=== PATIENT | male | born 1930 | race Caucasian/White ===

== ENCOUNTER 2017-06-13 13:02 | Emergency (ER) | payer MEDICARE ==
[2017-06-13 13:19] VITALS: BP 130/77
[2017-06-13] MEDS ORDERED: DIPHTH,PERTUSS(ACELL),TET VAC 0.5 ML VIAL IM ONE ×2 (13:31→14:35)
--- OUTSIDE RECORDS SUMMARY | 2017-06-13 13:36 | XMS REPORT | Encounter Summary ---
:1929 Author Organization [email or web address] [place] [address] Care Team Providers Name Role Phone Unavailable Primary Care Provider Unavailable Reason for Visit Reason Comments Medication Reaction Encounter Details Date Type Department Care Team Description 06/04/2017 Telephone [facility] Alok [place]varez [place] [address] [place] [phone] Social History Tobacco Use Types Packs/Day Years Used Date Never Smoker Smokeless Tobacco: Never Used Sex Assigned at Date Recorded Not on file as of this encounter Plan of Treatment Date Type Specialty Care Team Description 06/14/2017 Appointment Family Medicine as of this encounter Visit Diagnoses Not on filein this encounter
--- OUTSIDE RECORDS SUMMARY | 2017-06-13 13:36 | XMS REPORT | Encounter Summary ---
:1929 Author Organization [employer] [place] [address] Care Team Providers Name Role Phone Unavailable Primary Care Provider Unavailable Reason for Visit Reason Comments Results Encounter Details Date Type Department Care Team Description 06/12/2017 Telephone [facility] Xiomara Davenport, Results Family [address], [address] [place] [phone] [facility] [phone] [place], [place] [phone] Social History Tobacco Use Types Packs/Day Years Used Date Never Smoker Smokeless Tobacco: Never Used Sex Assigned at Date Recorded Not on file as of this encounter Plan of Treatment Date Type Specialty Care Team Description 06/14/2017 Appointment Family Medicine as of this encounter Visit Diagnoses Not on filein this encounter
--- OUTSIDE RECORDS SUMMARY | 2017-06-13 13:36 | XMS REPORT | Encounter Summary ---
:1929 Author Organization [employer] [place] [address] Care Team Providers Name Role Phone Unavailable Primary Care Provider Unavailable Encounter Details Date Type Department Care Team Description 06/04/2017 Orders Only [facility] Alok Medrano, TANK STAVE ASSEMBLER [address] [place] [address] [place] [address] [phone] Social History Tobacco Use Types Packs/Day Years Used Date Never Smoker Smokeless Tobacco: Never Used Sex Assigned at Date Recorded Not on file as of this encounter Plan of Treatment Date Type Specialty Care Team Description 06/14/2017 Appointment Family Medicine as of this encounter Visit Diagnoses Not on filein this encounter
--- OUTSIDE RECORDS SUMMARY | 2017-06-13 13:36 | XMS REPORT | Encounter Summary ---
:1929 Author Organization [email or web address] [place] [address] Care Team Providers Name Role Phone Unavailable Primary Care Provider Unavailable Encounter Details Date Type Department Care Team Description 06/04/2017 Orders Only [facility] Ervin, Atrial fibrillation , [facility] Xiomara Ramirez CMA unspecified type (HCC) [address] [facility], [address] [place] [address] (Primary Dx) [address] [facility] 3 [place] [address] [place] [address] [phone] Social History Tobacco Use Types Packs/Day Years Used Date Never Smoker Smokeless Tobacco: Never Used Sex Assigned at Date Recorded Not on file as of this encounter Plan of Treatment Date Type Specialty Care Team Description 06/14/2017 Appointment Family Medicine Name Priority Associated Diagnoses Order Schedule PROTIME-INR Routine Atrial fibrillation, unspecified 365 Occurrences starting type (HCC) 06/04/2017 until 06/04/2018, 1 completed as of this encounter Results PROTIME-INR (06/08/2017 1:35 PM) Component Value Ref Range Protime 24.1(H) 9.1 - 12.4 Sec INR 2.4 Comment: CLINICAL CORRELATION IS ESSENTIAL: Prophylaxsis/treatment/prevention of venous thrombosis/embolism INR 2.0 - 3.0 Mechanical prosthetic valves/recurrent systemic embolism INR 2.5 - 3.5 Specimen Performing Laboratory [employer] [facility] [address] [place] [address] Narrative Testing performed at [employer] [facility], [address] [place] [address].Musical Engineer Benton Garcia MD in this encounter Visit Diagnoses Diagnosis Atrial fibrillation, unspecified type (HCC) - Primary in this encounter
--- OUTSIDE RECORDS SUMMARY | 2017-06-13 13:36 | XMS REPORT | Clinical Summary ---
:[birth year]29 Author Organization [employer] [place] [address] Care Team Providers Name Role Phone Unavailable Primary Care Provider Unavailable Source Comments This disclosure is being made pursuant to the [employer] Pat[employer] program and maynot contain all information available regarding this patient.[employer] Allergies Active Allergy Reactions Severity Noted Date Comments Amoxicillin Other (See Comments) 01/02/2017 Fluoxetine Other (See Comments) 01/02/2017 Hydrocodone Dizziness Low 01/02/2017 hypotension Oxycodone Dizziness Low 01/02/2017 hypotension Current Medications Be aware that medications may not be up to date as of this document. Alwaysverify current medications with the patient. Prescription Sig. Disp. Refills Start Date End Date Status omeprazole Take 20 mg by 1 10/19/2016 Active (PRILOSEC) 20 MG mouth daily. capsule Multiple Take 1 tablet Active Vitamins-Minerals by mouth (MULTIVITAMIN ADULT daily. PO) fish oil 1000 MG Take 1,000 mg Active CAPS by mouth daily. omeprazole TAKE ONE 30 capsule 3 03/05/2017 Active (PRILOSEC) 20 MG CAPSULE BY capsule MOUTH DAILY warfarin (COUMADIN) Take 1 tablet 30 tablet 11 04/12/2017 Active 1 MG daily along tabletIndications:A with a 5 mg trial fibrillation, tablet to unspecified type equal 6 mg (HCC) daily warfarin (COUMADIN) TAKE 1 TABLET 30 tablet 1 04/18/2017 Active 5 MG tablet BY MOUTH DAILY metoprolol Take 1 tablet 30 tablet 0 06/04/2017 Active succinate by mouth (TOPROL-XL) 50 MG daily. 24 hr tablet metoprolol Take 50 mg by 5 12/11/2016 06/04/2017 Discontinued succinate mouth daily. (TOPROL-XL) 50 MG 24 hr tablet Active Problems Not on file Encounters Date Type Specialty Care Team Description 06/12/2017 Telephone Family Medicine Xiomara Mueller CMA 06/04/2017 Orders Only Family Medicine Alok Alvarez LPN 06/04/2017 Orders Only Family Medicine Xiomara Mueller Atrial fibrillation, L, GREEN PRIZE PACKER unspecified type (HCC) (Primary Dx) 06/04/2017 Telephone [facility] Medicine Alok Alvarez LPN Medication Reaction 06/04/2017 Telephone [facility] Alok Alvarez LPN Medication Review 06/03/2017 Orders Only [facility] Medicine [address], On warfarin therapy SOCIAL SCIENCES CHAIR (Primary Dx) 05/31/2017 Office Visit Family Medicine [address], Routine adult health maintenance (Primary Dx); SOCIAL SCIENCES CHAIR Atrial fibrillation, unspecified type (HCC) 04/18/2017 Refill Family Medicine Bowen Vinson MD from Last 3 Months Social History Tobacco Use Types Packs/Day Years Used Date Never Smoker Smokeless Tobacco: Never Used Sex Assigned at Date Recorded Not on file Last Filed Vital Signs Vital Sign Reading Time Taken Blood Pressure 143/75 05/31/2017 1:09 PM CDT Pulse 85 05/31/2017 1:09 PM CDT Temperature 36.8 C (98.2 F) 05/31/2017 1:09 PM CDT Respiratory Rate 17 05/31/2017 1:09 PM CDT Oxygen Saturation 96% 05/31/2017 1:09 PM CDT Inhaled Oxygen Concentration - - Weight 109 kg (240 lb 4.8 oz) 01/02/2017 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 Component Value Ref Range Protime 24.1(H) 9.1 - 12.4 Sec INR 2.4 Comment: CLINICAL CORRELATION IS ESSENTIAL: Prophylaxsis/treatment/prevention of venous thrombosis/embolism INR 2.0 - 3.0 Mechanical prosthetic valves/recurrent systemic embolism INR 2.5 - 3.5 Specimen Performing Laboratory [facility] [address] [place] [address] Narrative Testing performed at [facility], [address] [place] [address].Mfg Assoc Benton Garcia MD CBC auto differential (05/31/2017 1:55 PM) Component Value Ref Range WBC 7.8 3.1 - 11.0 x10^3/uL RBC 3.85(L) 4.29 - 5.55 x10^6/uL Hemoglobin 12.3(L) 13.4 - 16.9 g/dL Hematocrit 37.1(L) 39.2 - 48.0 % MCV 96.4 82.0 - 98.0 fL MCH 31.9 27.2 - 33.3 pg MCHC 33.2 32.0 - 36.0 g/dL RDW 14.0 11.4 - 14.2 % SD-RDW 48.6(H) 36.0 - 47.0 fL Platelets 188 150 - 450 x10^3/uL MPV 11.1 9.1 - 12.1 fL NE% 64.1 42.0 - 76.0 % %LYMPH 20.1 13.5 - 48.0 % %MONO 9.5 3.5 - 14.0 % % Eosinophils 4.7 0.0 - 7.0 % % Basophils 1.1 0.0 - 1.5 % Imm Gran Relative 0.5 0.0 - 1.0 % NE# 5.0 1.2 - 7.3 x10^3/uL Lymphs # 1.6 0.7 - 3.5 x10^3/uL [place]# 0.7 0.2 - 0.9 x10^3/uL Eosinophil # 0.4 0.0 - 0.5 x10^3/uL Baso# 0.1 0.0 - 0.1 x10^3/uL Imm Gran Absolute 0.04 0.00 - 0.10 x10^3/uL NRBC % 0.00 0.00 - 0.10 /100 WBC Specimen Performing Laboratory BLOOD [facility] [address] [place] [address] Narrative Testing performed at [facility], [address] [place] [address].Mfg Assoc Benton Garcia MD Comprehensive metabolic panel (05/31/2017 1:55 PM) Component Value Ref Range Glucose 103(H) 60 - 100 mg/dL Comment: Fasting Plasma Glucose (FPG)<100 MG/DL Impaired Fasting Glucose (IFG) 100-125 MG/DL Provisional Diagnosis of Diabetes Mellitus > uv=470 MG/DL (Diagnosis Must Be Confirmed) BUN, Blood 22 8 - 26 mg/dL Creatinine 1.7(H) 0.7 - 1.4 mg/dL Glomerular Filtration Rate 35(L) >80 mL/min/1.73mm2 Estimate Glomerlular Filtration Rate 40(L)Comment:The estimated GFR >80 mL/min/1.73mm2 Estimate- has not been validated for women or patients with serious comorbid conditions, or with extremes of body size, muscle mass, or nutritional status. Calcium 9.3 8.4 - 10.2 mg/dL Sodium 141 136 - 145 mmol/L Potassium 3.8 3.4 - 4.9 mmol/L Chloride 106 99 - 111 mmol/L CO2 24.6 21.0 - 32.0 mmol/L Albumin 3.6 3.5 - 5.0 g/dL Total Protein 7.8 6.1 - 8.0 g/dL Bilirubin Total 1.5(H) 0.2 - 1.2 mg/dL Alkaline Phosphatase 176(H) 40 - 150 U/L AST 19 5 - 34 U/L ALT 12 0 - 55 u/L Specimen Performing Laboratory [facility] [address] [place] [address] Narrative Testing performed at [facility], [address] [place] [address].Mfg Assoc Benton Garcia MD from Last 3 Months Insurance Payer Benefit Plan / Subscriber ID Type Phone Address Group MEDICARE MEDICARE A AND B [id number] [phone] [address] [place] [address] [facility] MEDICARE [id number] [phone] [address] [facility] [address] [place] [address] Home: [address] [facility] [phone] [place] [address]
--- OUTSIDE RECORDS SUMMARY | 2017-06-13 13:36 | XMS REPORT | Encounter Summary ---
:1929 Author Organization [employer] [place] [address] Care Team Providers Name Role Phone Unavailable Primary Care Provider Unavailable Reason for Visit Reason Comments Medication Review Encounter Details Date Type Department Care Team Description 06/04/2017 Telephone [facility] Alok Alvarez LPN Medication Review [address] [address] [place] [phone] Social History Tobacco Use Types Packs/Day Years Used Date Never Smoker Smokeless Tobacco: Never Used Sex Assigned at Date Recorded Not on file as of this encounter Plan of Treatment Date Type Specialty Care Team Description 06/14/2017 Appointment Family Medicine as of this encounter Visit Diagnoses Not on filein this encounter
--- OUTSIDE RECORDS SUMMARY | 2017-06-13 13:37 | XMS REPORT | Encounter Summary ---
:1929 Author Organization [employer] [place] [address] Care Team Providers Name Role Phone Unavailable Primary Care Provider Unavailable Encounter Details Date Type Department Care Team Description 02/20/2017 Orders Only [facility] Bowen Vinson Paroxysmal atrial [facility] MD [place] fibrillation (HCC) [address] [facility], [address] [place] [address] (Primary Dx) [address] [facility] 3 [place] [address] [place], [place] [phone] Social History Tobacco Use Types Packs/Day Years Used Date Never Smoker Smokeless Tobacco: Never Used Sex Assigned at Date Recorded Not on file as of this encounter Progress Notes Yandy Chavez RN - 02/20/2017 1:[address] Asim Garcia, Mr. Serrano will be started and managed on warfarin therapy for paroxysmal a-fib by Dr. Vinson. See media tab for records from Dr. Asim Garcia's office.in this encounter Plan of Treatment Date Type Specialty Care Team Description 06/14/2017 Appointment Family Medicine as of this encounter Visit Diagnoses Diagnosis Paroxysmal atrial fibrillation (HCC) - Primary Atrial fibrillation in this encounter
--- OUTSIDE RECORDS SUMMARY | 2017-06-13 13:37 | XMS REPORT | Encounter Summary ---
:1929 Author Organization [place] [address] Care Team Providers Name Role Phone Unavailable Primary Care Provider Unavailable Encounter Details Date Type Department Care Team Description 06/03/2017 Orders Only [facility] [address], On warfarin therapy Rosalie ZIMMER (Primary Dx) [facility] [address] [address] [place] [address] [phone] Social History Tobacco Use Types Packs/Day Years Used Date Never Smoker Smokeless Tobacco: Never Used Sex Assigned at Date Recorded Not on file as of this encounter Plan of Treatment Date Type Specialty Care Team Description 06/14/2017 Appointment Family Medicine as of this encounter Visit Diagnoses Diagnosis On warfarin therapy - Primary in this encounter
--- OUTSIDE RECORDS SUMMARY | 2017-06-13 13:37 | XMS REPORT | Encounter Summary ---
:1929 Author Organization [employer] [place] [address] Care Team Providers Name Role Phone Unavailable Primary Care Provider Unavailable Reason for Visit Reason Comments Medication Refill Encounter Details Date Type Department Care Team Description 04/18/2017 Refill [facility] Bowen Jacobs MD [address], [address] [address] [place] [phone] Social History Tobacco Use Types Packs/Day Years Used Date Never Smoker Smokeless Tobacco: Never Used Sex Assigned at Date Recorded Not on file as of this encounter Plan of Treatment Date Type Specialty Care Team Description 06/14/2017 Appointment Family Medicine as of this encounter Visit Diagnoses Not on filein this encounter
--- OUTSIDE RECORDS SUMMARY | 2017-06-13 13:37 | XMS REPORT | Encounter Summary ---
:1929 Author Organization [employer] [place] [address] Care Team Providers Name Role Phone Unavailable Primary Care Provider Unavailable Reason for Visit Reason Comments Establish Care Encounter Details Date Type Department Care Team Description 05/31/2017 Office Visit [facility] [address] Routine adult health maintenance (Primary Dx); [facility] GORAN Ramirez Atrial fibrillation, unspecified type (HCC) [address] [facility], [address] [place] [address] [place] [phone] Social History Tobacco Use Types Packs/Day Years Used Date Never Smoker Smokeless Tobacco: Never Used Sex Assigned at Date Recorded Not on file as of this encounter Last Filed Vital Signs Vital Sign Reading Time Taken Blood Pressure 143/75 05/31/2017 1:09 PM CDT Pulse 85 05/31/2017 1:09 PM CDT Temperature 36.8 C (98.2 F) 05/31/2017 1:09 PM CDT Respiratory Rate 17 05/31/2017 1:09 PM CDT Oxygen Saturation 96% 05/31/2017 1:09 PM CDT Inhaled Oxygen Concentration - - Weight - - Height - - Body Mass Index - - in this encounter Progress Notes Epifanio Joshi DO - 06/01/2017 1:20 PM CDTI was the collaborating physicians for this encounter. Osvaldo Marina Jamey L, ARNP - 05/31/2017 1:10 PM CDTFormatting of this note may be different from the original. Subjective: Patient ID: Jose Ramon Serrano is a 86 y.o. male. HPI Pt Likes To be called Manjeet and Here to Establish Care with [facility]erson. Present With Shortness of breath with Exertion and pallor. He Asked us Speak Slow and Loud Due to his Hearing. Patient's problem list, medications, allergies, past medical, surgical, social and family histories were reviewed and updated as appropriate. Has a history of prostate cancer and states he is in remission. He sees Dr. Morrison in [place], [place] He sees a traffic court referee in [facility] for his heart. 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 Notes show mitral valve stenosis. He has been on warfarin therapy x 4 months. Review of Systems Constitutional: Negative. HENT: Negative. Eyes: Negative. Respiratory: Positive for shortness of breath. Cardiovascular: Negative. Gastrointestinal: Negative. Endocrine: Negative. Genitourinary: Negative. Musculoskeletal: Left ankle Swells Skin: Positive for pallor. Allergic/Immunologic: Negative. Neurological: Negative. Hematological: Bruises/bleeds easily. Psychiatric/Behavioral: Negative. Objective: BP 143/75 mmHg | Pulse 85 | Temp(Src) 36.8 C (98.2 F) (Tympanic) | Resp 17 | SpO2 96% There is no height or weight on file to calculate BMI. Physical Exam Constitutional: He is oriented to person, place, and time. He appears well- developed and well-nourished. No distress. Cardiovascular: Normal rate, regular rhythm and normal heart sounds. Pulmonary/Chest: Effort normal and breath sounds normal. Neurological: He is alert and oriented to person, place, and time. Skin: Skin is warm and dry. Assessment/Orders: Diagnoses and all orders for this visit: Routine adult health maintenance - CBC auto differential - Comprehensive metabolic panel Atrial fibrillation, unspecified type (HCC) - PROTIME-INR Plan: Reviewed medications and will continue with same management. Reviewed previous labs. Call or return if any needs arise. in this encounter Plan of Treatment Date Type Specialty Care Team Description 06/14/2017 Appointment Family Medicine as of this encounter Results PROTIME-INR (05/31/2017 1:55 PM) Component Value Ref Range Protime 14.3(H) 9.1 - 12.4 Sec INR 1.4 Comment: CLINICAL CORRELATION IS ESSENTIAL: Prophylaxsis/treatment/prevention of venous thrombosis/embolism INR 2.0 - 3.0 Mechanical prosthetic valves/recurrent systemic embolism INR 2.5 - 3.5 Specimen Performing Laboratory [facility] [address] [place] [address] Narrative Testing performed at [facility], [address] [place] [address].Evaporator Operator Benton Garcia MD Comprehensive metabolic panel (05/31/2017 1:55 PM) Component Value Ref Range Glucose 103(H) 60 - 100 mg/dL Comment: Fasting Plasma Glucose (FPG)<100 MG/DL Impaired Fasting Glucose (IFG) 100-125 MG/DL Provisional Diagnosis of Diabetes Mellitus > ft=414 MG/DL (Diagnosis Must Be Confirmed) BUN, Blood [...] 0 - 55 u/L Specimen Performing Laboratory [facility] [address] [place] [address] Narrative Testing performed at [facility], [address] [place] [address].Evaporator Operator Benton Garcia MD CBC auto differential (05/31/2017 [...] Lymphs # 1.6 0.7 - 3.5 x10^3/uL [place]# 0.7 0.2 - 0.9 x10^3/uL Eosinophil # 0.4 0.0 - 0.5 x10^3/uL Baso# 0.1 0.0 - 0.1 x10^3/uL Imm Gran Absolute 0.04 0.00 - 0.10 x10^3/uL NRBC % 0.00 0.00 - 0.10 /100 WBC Specimen Performing Laboratory BLOOD [facility] [address] [place] [address] Narrative Testing performed at [facility], [address] [place] [address].Evaporator Operator Benton Garcia MD in this encounter Visit Diagnoses Diagnosis Routine adult health maintenance - Primary Routine general medical examination at a health care facility Atrial fibrillation, unspecified type (HCC) in this encounter"
--- OUTSIDE RECORDS SUMMARY | 2017-06-13 13:37 | XMS REPORT | Encounter Summary ---
:1929 Author Organization [employer] [place] [address] Care Team Providers Name Role Phone Unavailable Primary Care Provider Unavailable Reason for Visit Reason Comments Medication Refill Encounter Details Date Type Department Care Team Description 03/05/2017 Refill [facility] Bowen Jacobs MD [address], [address] [address] [place] [phone] Social History Tobacco Use Types Packs/Day Years Used Date Never Smoker Smokeless Tobacco: Never Used Sex Assigned at Date Recorded Not on file as of this encounter Plan of Treatment Date Type Specialty Care Team Description 06/14/2017 Appointment Family Medicine as of this encounter Visit Diagnoses Not on filein this encounter
--- OUTSIDE RECORDS SUMMARY | 2017-06-13 13:38 | XMS REPORT | Encounter Summary ---
:1929 Author Organization [employer] [place] [address] Care Team Providers Name Role Phone Unavailable Primary Care Provider Unavailable Reason for Visit Reason Comments Medication Refill Encounter Details Date Type Department Care Team Description [facility] [address] [place] [address], [address] [address] [place] [address] [phone] Social History Tobacco Use Types Packs/Day Years Used Date Never Smoker Smokeless Tobacco: Never Used Sex Assigned at Date Recorded Not on file as of this encounter Plan of Treatment Date Type Specialty Care Team Description 06/14/2017 Appointment Family Medicine as of this encounter Visit Diagnoses Not on filein this encounter
--- OUTSIDE RECORDS SUMMARY | 2017-06-13 13:38 | XMS REPORT | Encounter Summary ---
:1929 Author Organization [employer] [place] [address] Care Team Providers Name Role Phone Unavailable Primary Care Provider Unavailable Reason for Visit Reason Comments Referral Encounter Details Date Type Department Care Team Description 01/18/2017 Telephone [facility] Milly Hanna, vending service technician Family Practice [address] [place] [address], [address] [address] [place] [address] [phone] Social History Tobacco Use Types Packs/Day Years Used Date Never Smoker Smokeless Tobacco: Never Used Sex Assigned at Date Recorded Not on file as of this encounter Plan of Treatment Date Type Specialty Care Team Description 06/14/2017 Appointment Family Medicine as of this encounter Visit Diagnoses Not on filein this encounter
--- OUTSIDE RECORDS SUMMARY | 2017-06-13 13:39 | XMS REPORT | Encounter Summary ---
:1930 Author Organization [employer] [place] [address] Care Team Providers Name Role Phone Unavailable Primary Care Provider Unavailable Reason for Visit Reason Comments New Patient Shortness of Breath with exertion Other denies cp or edema Encounter Details Date Type Department Care Team Description 01/02/2017 Office Visit [facility] [place], Chest pain, Cardiology MD Glendy unspecified type [address] [place] [address] (Primary Dx) [place] [address] [place] [phone] [place] [address] Social History Tobacco Use Types Packs/Day Years Used Date Never Smoker Smokeless Tobacco: Never Used Sex Assigned at Date Recorded Not on file as of this encounter Last Filed Vital Signs Vital Sign Reading Time Taken Blood Pressure 120/70 01/02/2017 11:11 AM [employer] Pulse 64 01/02/2017 11:11 AM [employer] Temperature - - Respiratory Rate - - Oxygen Saturation - - Inhaled Oxygen Concentration - - Weight 109 kg (240 lb 4.8 oz) 01/02/2017 11:11 AM [employer] Height - - Body Mass Index - - in this encounter Progress Notes Glendy Jc MD - 01/02/2017 12:19 PM CSTFormatting of this note may be different from the original. Subjective: Patient ID: Jose Ramon Serrano is a 86 y.o. male. HPI 86-year-old very pleasant white gentleman that was referred to me because of new -onset symptoms of shortness of breath with exertion. Patient has class III symptoms. Underwent an echocardiogram thatrevealed severe aortic stenosis with a valve areaof 1.0 cm and moderate mitral valve stenosis as well. Was referred to me for further evaluation. He has been very symptomatic. Review of Systems Constitutional: Negative. HENT: Negative. Eyes: Negative. Respiratory: Positive for shortness of breath. Cardiovascular: Negative. Gastrointestinal: Negative. Musculoskeletal: Negative. Skin: Negative. Allergic/Immunologic: Negative. Neurological: Negative. Hematological: Negative. Objective: BP 120/70 mmHg | Pulse 64 | Wt 108.999 kg (240 lb 4.8 oz) There is no height on file to calculate BMI. Physical Exam Constitutional: He is oriented to person, place, and time. He appears well- developed and well-nourished. HENT: Head: Normocephalic. Eyes: Pupils are equal, round, and reactive to light. Neck: Neck supple. No JVD present. Carotid bruit is not present. Cardiovascular: Normal rate, regular rhythm, S1 normal, S2 normal, intact distal pulses and normal pulses. Exam reveals no gallop and no friction rub. Murmur heard. Pulmonary/Chest: Effort normal and breath sounds normal. No respiratory distress. He has no wheezes. He has no rales. Abdominal: Soft. Bowel sounds are normal. He exhibits no distension. There is no tenderness. There is no rebound. Musculoskeletal: Normal range of motion. He exhibits no edema. Neurological: He is alert and oriented to person, place, and time. No cranial nerve deficit. Skin: Skin is warm and dry. No rash noted. No erythema. No pallor. Psychiatric: He has a normal mood and affect. Current Outpatient Prescriptions Medication Sig Dispense Refill fish oil 1000 MG CAPS Take 1,000 mg by mouth daily. metoprolol succinate (TOPROL-XL) 50 MG 24 hr tablet Take 50 mg by mouth daily. 5 Multiple Vitamins-Minerals (MULTIVITAMIN ADULT PO) Take 1 tablet by mouth daily. omeprazole (PRILOSEC) 20 MG capsule Take 20 mg by mouth daily. 1 XARELTO 20 MG TABS tablet Take 20 mg by mouth daily. 0 No current facility-administered medications for this visit. Allergies Allergen Reactions Amoxicillin Other (See Comments) Fluoxetine Other (See Comments) Hydrocodone Dizziness hypotension Oxycodone Dizziness hypotension Assessment/Orders: Diagnoses and all orders for this visit: Chest pain, unspecified type - CBC (Hemogram); Future - Basic metabolic panel; Future - APTT; Future - PROTIME-INR; Future Plan: Shortness of breath with exertion in a patient with mitral and aortic valve stenosis mostly aortic valve stenosis. Patient is asymptomatic.. We will proceed with transesophageal echocardiogram to further evaluate his valvular abnormalities and left heart catheter to further evaluate her coronary vasculature. This could be a good patient for TAVR because of his age group. Thank you very much for referring his very interesting patient of yours Follow-up in 1 week Risks and benefits of catheterization were discussed with the patient. Risks include bleeding, infection, femoral injury in the groin area, bleeding in the abdomen or in the chest, kidney problems dueto the contrast, allergic reaction to the contrastand major complications include heart attack, stroke and . Patient understood the procedure and is willing to proceed. in this encounter Plan of Treatment Date Type Specialty Care Team Description 06/14/2017 Appointment Family Medicine as of this encounter Results PROTIME-INR (01/02/2017 12:02 PM) Component Value Ref Range Protime 12.2 9.1 - 12.4 Sec INR 1.2 Comment: CLINICAL CORRELATION IS ESSENTIAL: Prophylaxsis/treatment/prevention of venous thrombosis/embolism INR 2.0 - 3.0 Mechanical prosthetic valves/recurrent systemic embolism INR 2.5 - 3.5 Specimen Performing Laboratory [facility] [address] [place] [address] Narrative Testing performed at [facility], [address] [place] [address].Placement Assistant Stevo Thomas MD APTT (01/02/2017 12:02 PM) Component Value Ref Range PTT 29.4 22.2 - 34.7 Sec Specimen Performing Laboratory [facility] [address] [place] [address] Narrative Testing performed at [facility], [address] [place] [address].Placement Assistant Stevo Thomas MD Basic metabolic panel (01/02/2017 12:02 PM) Component Value Ref Range Glucose 106(H) 60 - 100 mg/dL Comment: Fasting Plasma Glucose (FPG)<100 MG/DL Impaired Fasting Glucose (IFG) 100-125 MG/DL Provisional Diagnosis of Diabetes Mellitus > tt=580 MG/DL (Diagnosis Must Be Confirmed) BUN, Blood 26 8 - 26 mg/dL Creatinine 1.7(H) 0.7 - 1.4 mg/dL Glomerular Filtration Rate 36(L) >80 mL/min/1.73mm2 Estimate Glomerlular Filtration Rate 42(L)Comment:The estimated GFR >80 mL/min/1.73mm2 Estimate- has not been validated for women or patients with serious comorbid conditions, or with extremes of body size, muscle mass, or nutritional status. Calcium 9.8 8.4 - 10.2 mg/dL Sodium 140 136 - 145 mmol/L Potassium 4.4 3.4 - 4.9 mmol/L Chloride 104 99 - 111 mmol/L CO2 25.4 21.0 - 32.0 mmol/L Specimen Performing Laboratory [facility] [address] [place] [address] Narrative Testing performed at [facility], [address] [place] [address].Placement Assistant Stevo Thomas MD CBC (Hemogram) (01/02/2017 12:02 PM) Component Value Ref Range WBC 7.0 3.1 - 11.0 x10^3/uL RBC 4.11(L) 4.29 - 5.55 x10^6/uL Hemoglobin 12.6(L) 13.3 - 16.5 g/dL Hematocrit 38.0(L) 39.2 - 48.0 % MCV 92.5 81.0 - 98.0 fL MCH 30.7 27.2 - 33.3 pg MCHC 33.2 31.7 - 35.6 g/dL RDW 12.2 11.4 - 13.6 % SD-RDW 40.2 36.4 - 46.3 fL Platelets 215 147 - 370 x10^3/uL MPV 11.1 9.1 - 12.1 fL Specimen Performing Laboratory [facility] [address] [place] [address] Narrative Testing performed at [facility], [address] [place] [address].Placement Assistant Stevo Thomas MD in this encounter Visit Diagnoses Diagnosis Chest pain, unspecified type - Primary in this encounter"
--- OUTSIDE RECORDS SUMMARY | 2017-06-13 13:39 | XMS REPORT | Summary of Care ---
:1930 Author Organization [facility] Address [address] [facility] [facility] [address] [place] [address] Care Team Providers Name Role Phone Physician, Primary Care Primary Care Physician Unavailable Encounter Date(s): 02/14/17 - 02/14/17 [facility], [address] [place], [place] [address] Discharge Diagnosis: Urgency of urination Discharge Diagnosis: PC (prostate cancer) Discharge Disposition: 01 Discharged to Home or Self Care Attending Physician: Bong Valencia MD Referring Physician: Bong Valencia MD Vital Signs Most recent to oldest [Reference Range]: 1 Blood Pressure [90-130/60-90 mmHg] 148/90mmHg *HI* (02/14/17 12:09 PM) Mean Arterial Pressure, Cuff 109 mmHg (02/14/17 12:09 PM) Most recent to oldest [Reference Range]: 1 Weight Dosing 112 kg (02/14/17 12:09 PM) Problem List Condition Effective Dates Status Health Status Informant PC (prostate cancer)(Confirmed) Active Allergies, Adverse Reactions, Alerts No Known Medication Allergies Medications bicalutamide mg, Oral, q24hr interval, 0 Refill(s) Start Date: 07/29/14 Stop Date: 07/30/14 Status: DiscontinuedDepo Lupron (office) 30 mg, IM, ONETIME, First Dose: 02/14/17 17:00:00 CDT, Stop Date: 02/14/17 17:00 :00 CDT, Diagnosis: PC (prostate cancer) Start Date: 02/14/17 Stop Date: 02/14/17 Status: Completedglucosamine-chondroitin 250 mg-200 mg oral capsule cap(s), Oral, Daily, 0 Refill(s) Start Date: 07/29/14 Status: OrderedHYDROcodone-acetaminophen 5 mg-325 mg oral tablet 0 Refill(s), Start Date: 05/31/16 10:53:00 CDT Start Date: 05/31/16 Status: Orderedibuprofen 0 Refill(s) Start Date: 07/29/14 Status: Ordered Results No data available for this section Immunizations No data available for this section Procedures Procedure Date Related Diagnosis Body Site CE - Cataract extraction Social History No data available for this section Assessment and Plan No data available for this section
--- NOTE | 2017-06-13 14:51 | ERNOTE ---
Trauma/Assault HPI - Narrative Date of Service: 06/13/17 - General Stated Complaint: FALL Time Seen by Provider: 06/13/17 13:25 Source: patient Exam Limitations: no limitations - Immun/Allergies/Home Medications Immunizations: IMMUNIZATION HX Immunizations Up to Date Yes History of Influenza Vaccine Yes Hx Pneumococcal Vaccination Yes Allergies/Adverse Reactions: Allergies hydrocodone Allergy (Verified 06/13/17 13:20) oxycodone Allergy (Verified 06/13/17 13:20) - History of Present Illness Narrative: Patient presents to the ED after a trip and fall in the parking lot. He was coming here for a shot, tripped and fell onto his knees and righthand. No head injury. No other injuries. Believes dT 4 years ago. no focal N/T/W. No head injury, neck or back pain. Was brought here by wheelchair. no CP or SOB, no abdominal pain, no syncope. pain anterior right and left knee and right thumb area. Location Occurred: Reports: other - hospital Method of Injury: Reports: fall Severity: moderate Modifying Factors - (Improves): Reports: rest Modifying Factors - (Worsens): Reports: movement Loss of Consciousness: Reports: no loss of consciousness Associated Symptoms - Trauma: Denies: headache, dizziness, lightheadedness, slurred speech, neck pain, chest pain, shortness of breath, abdominal pain Review of Systems - Review of Systems Constitutional: Absent: fever Respiratory: Absent: shortness of breath Cardiology: Absent: chest pain Gastrointestinal/Abdominal: Absent: abdominal pain Musculoskeletal: Present: See HPI. Absent: back pain Neurological: Absent: weakness - Patient's Past Medical History Patient History - Medical: GERD Patient History - Cardiac/Respiratory: Hypertension, Other Patient History - Cancer: Prostate Patient History - Surgical Procedures: Total Knee Replacement, T & A Patient History - Other: None - Social History Living Situations: home Psych History: No pertinent hx - Immunizations Immunizations Up to Date: Yes Hx Pneumococcal Vaccination: Yes History of Influenza Vaccine: Yes Physical Exam - Physical Exam General Appearance: Present: alert, no apparent distress Head Exam: Present: normal inspection, no evidence of injury Eye Exam: Normal inspection: bilateral, PERRL: bilateral Ears, Nose, Throat: Present: normal ENT inspection Neck: Present: normal inspection, nontender Respiratory: Present: no respiratory distress, normal breath sounds, no accessory muscle use, lungs clear Cardiovascular/Chest: Present: regular rate, rhythm, normal peripheral pulses Gastrointestinal/Abdominal: Present: normal bowel sounds, nontender, nondistended, soft Back Exam: Present: no vertebral tenderness Extremity Exam: Present: other - Tenderness right thumb area. Tenderness right and left anterior knee. No gross instability. No hip tendenress. No elbow or shoulder tenderess. No clear loss of patellar tendon function. Abrasions bilateral knees , no open Fx. Superficial flap laceration right thumb without FB. No open fractures. Neurological Exam: Present: alert, normal mood/affect, no motor/sensory deficits , lay out worker II-XII nml as tested. Absent: motor weakness Skin Exam: Present: normal color, warm/dry, other - abrasions and flap laceration right thumb that does not require primary closure ED Progress - Vital Signs Patient's Vital Signs:: I have reviewed the patient's vital signs. Vital Signs: Vital Signs 06/13/17 13:12 Temperature 36.5 C Pulse Rate 79 Respiratory 16 Rate Blood Pressure 130/77 O2 Sat by Pulse 95 Oximetry - X-Ray X-Ray #1 X-Ray: knee Interpretation: Interp. by me X-ray Comments: I reviewed official report X-Ray #2 X-Ray: knee Interpretation: Reviewed by me X-ray Comments: I reviewed official report X-Ray #3 X-Ray: hand Interpretation: Reviewed by me X-ray Comments: I reviewed official report - Progress/Reassessment Chief Complaint: Fall Progress Note-Subjective: 06/13/17 14:48 Cannot rule out patellar Fx given x-ray. knee immobilizer. They wanted to see ortho at another site, I told them they needed to call to be seen in the next 24 -48 hours and if couldn't should call back here to be seen here. He is requesting to go home. I discussed warning signs and reasons to return as well as the need for close f/u. Departure Clinical Impression: Fall, Abrasions of multiple sites, Musculoskeletal pain - Departure Disposition: Home self-care Condition: Stable Instructions: Knee Immobilizer, [id number] Additional Instructions: Knee Immobilizer. Call orthopedics today for an appointment as soon as possible. Return for signs of infection, increased pain, numbness, tingling, weakness or if your condition worsens or changes in any way. Referrals: Gerson Lane ARNP [Primary Care Provider] -
== END 2017-06-13 14:51 | disposition home or self-care (01) ==
LOC: ER 13:02
PROC: 2W3LX1Z Immobilization of Right Lower Extremity using Splint (ICD-10-PCS; principal; 2017-06-13)
DX: S60.311A Abrasion of right thumb, initial encounter (principal); S80.212A Abrasion, left knee, initial encounter; S80.211A Abrasion, right knee, initial encounter; M25.561 Pain in right knee; M25.562 Pain in left knee; Z85.46 Personal history of malignant neoplasm of prostate; Z96.659 Presence of unspecified artificial knee joint; W01.0XXA Fall on same level from slipping, tripping and stumbling without subsequent striking against object, initial encounter; Y93.01 Activity, walking, marching and hiking; Y92.238 Other place in hospital as the place of occurrence of the external cause; Z23 Encounter for immunization